=== PATIENT | female | born 1940 | race Hispanic/Latino ===

== ENCOUNTER 2017-01-22 17:18 | Emergency (ER) | payer MEDICARE ==
--- NOTE | 2017-01-22 19:40 | C.PDOC ---
History Of Present Illness 76 y/o female with a PMHx of HTN, c/o sudden onset headache for the past 4 days. Pain is dull and intermittent that is 4/10. Symptom is worse with movement. Patient takes Advil with relief of pain, but notes that the symptoms returns after. Patient reports shoulder soreness, but denies vomiting, nausea. No photophobia, visual changes, neck stiffness, head trauma, or weakness. Patient reports being currently without headache. Time Seen by Provider: 01/22/17 18:47 Chief Complaint (Nursing): Headache History Per: Patient History/Exam Limitations: no limitations Onset/Duration Of Symptoms: Days, Intermittent Episodes Current Symptoms Are (Timing): Still Present Severity: Mild Pain Scale Rating Of: 4 Quality: Dull Associated Symptoms: denies: Photophobia, Blurred Vision, Vomiting, Extremity Weakness Recent travel outside of the [place]: No Additional History Per: Patient Past Medical History Reviewed: Historical Data, Nursing Documentation, Vital Signs Vital Signs: Last Vital Signs Temp 98.0 F 01/22/17 18:57 Pulse 60 01/22/17 18:57 Resp 18 01/22/17 18:57 BP 197/77 H 01/22/17 20:02 Pulse Ox 99 01/22/17 20:48 - Medical History PMH: Asthma, HTN, Hypercholesterolemia Family History: States: Unknown Family Hx - Social History Hx Alcohol Use: No Hx Substance Use: No - Immunization History Hx Tetanus Toxoid Vaccination: Yes Hx Influenza Vaccination: Yes Hx Pneumococcal Vaccination: Yes Review Of Systems Except As Marked, All Systems Reviewed And Found Negative. Constitutional: Negative for: Other (Head trauma) Eyes: Negative for: Vision Change, Other (Photophobia) Gastrointestinal: Negative for: Nausea, Vomiting Musculoskeletal: Positive for: Shoulder Pain (Soreness). Negative for: Neck Pain Neurological: Positive for: Headache. Negative for: Weakness Physical Exam - Physical Exam Appears: Non-toxic, No Acute Distress Skin: Warm, Dry Head: Atraumatic, Normacephalic Neck: Normal ROM, Supple, No Other (Meningeal signs) Chest: Symmetrical Cardiovascular: Rhythm Regular, No Murmur Respiratory: Normal Breath Sounds, No Rales, No Rhonchi, No Wheezing Neurological/Psych: Oriented x3, Normal Speech, Normal Cognition, Other (No focal deficit) Gait: Steady ED Course And Treatment - Laboratory Results Result Diagrams: 01/22/17 19:45 01/22/17 19:45 Lab Interpretation: Normal (trop and UA neg.) ECG: Interpreted By Me, Viewed By Me ECG Rhythm: Sinus Bradycardia ECG Interpretation: Normal Rate From EC O2 Sat by Pulse Oximetry: 99 (RA) Pulse Ox Interpretation: Normal - Radiology CXR: Interpreted by Me CXR Interpretation: Yes: No Acute Disease Progress Note: bp IMPROVED no headache. Reevaluation Time: 20:46 Medical Decision Making Medical Decision Making: Plans: * EKG * Blood labs * CXR * Tylenol * Norvasc * IV fluids * UA 2044: despite PMD referred for head CT, per pt, this pt without headache, and no s/s of sinusitis. If imaging desired, pt may benefit from MRI with better sensitivity for subtle findings. Continue Norvasc 5 mg PO and f/u with PMD Disposition Doctor Will See Patient In The: Office Counseled Patient/Family Regarding: Studies Performed, Diagnosis - Disposition Referrals: Yaritza Horan MD [Medical Doctor] - Disposition: HOME/ ROUTINE Disposition Time: 20:48 Condition: GOOD Additional Instructions: continue Norvasc 5 mg daily for your elevated BP (197/77, HR 60 in ED) Tylenol 975 mg every 6 hours as needed for headache. Follow-up w Dr. Horan in 1-[address] was NOT done- consider outpatient MRI as needed. Prescriptions: amLODIPine [Norvasc] 5 mg PO DAILY #30 tab Instructions: Acute Headache (ED), Hypertension (ED) Forms: [employer] ([place]) - Clinical Impression Clinical Impression: Chronic headaches, Hypertension - Scribe Statement The provider has reviewed the documentation as recorded by the Scribe Mariela [email or web address] All medical record entries made by the Scribe were at my direction and personally dictated by me. I have reviewed the chart and agree that the record accurately reflects my personal performance of the history, physical exam, medical decision making, and the department course for this patient. I have also personally directed, reviewed, and agree with the discharge instructions and disposition.
[2017-01-22 19:55] LABS: BASO # 0.1 K/uL (0.0-0.2); BASO % 0.8 % (0.0-2.0); EOS # 0.2 K/uL (0.0-0.7); EOS % 3.1 % (0.0-4.0); HEMATOCRIT 37.1 % (34.0-47.0); LYMPH # 2.2 K/uL (1.0-4.3); LYMPH % 31.7 % (20.0-40.0); MEAN CELL VOLUME 90.6 fL (81.0-99.0); MEAN CORPUSCULAR HEMOGLOBIN 30.6 pg (27.0-31.0); MEAN CORPUSCULAR HGB CONC 33.8 g/dL (33.0-37.0); MEAN PLATELET VOLUME 7.6 fL (7.2-11.7); MONO # 0.7 K/uL (0.0-0.8); MONO % 9.7 % (0.0-10.0); NRBC % 0.1 % (0.0-2.0); RED CELL DISTRIBUTION WIDTH 13.7 % (11.5-14.5); WHITE BLOOD COUNT 6.9 K/uL (4.8-10.8)
[2017-01-22 20:03] LABS: CHLORIDE 99 mmol/L (98-107); SODIUM 138 mmol/L (132-148)
[2017-01-22 20:04] LABS: POTASSIUM 5.5 mmol/L (3.6-5.2)
[2017-01-22 20:04] LABS: RBC URINE 1 /hpf (0-3); URINE BACTERIA OCC (<OCC); URINE BILIRUBIN NEGATIVE (NEGATIVE); URINE BLOOD 1+ (NEGATIVE); URINE COLOR Colorless (YELLOW); URINE GLUCOSE (UA) NORMAL (Normal); URINE KETONE NEGATIVE (NEGATIVE); URINE LEUKOCYTE ESTERASE 1+ Leu/uL (Negative); URINE PROTEIN NEGATIVE (NEGATIVE); URINE UROBILINOGEN NORMAL mg/dL (0.2-1.0); WBC URINE 5 /hpf (0-5)
[2017-01-22 20:05] LABS: AST/SGOT 59 U/L (14-36); BILIRUBIN,TOTAL 1.5 mg/dL (0.2-1.3); CARBON DIOXIDE 22 mmol/L (22-30); GFR AFRICAN-AMERICAN > 60
[2017-01-22 20:06] LABS: ALB/GLOB RATIO 1.1 (1.0-2.1); ALKALINE PHOSPHATASE 57 U/L (38-126); ALT/SGPT 11 U/L (9-52); BLOOD UREA NITROGEN 18 mg/dL (7-17); GLUCOSE,RANDOM 89 mg/dL (65-105); TOTAL PROTEIN 8.7 g/dL (6.3-8.3)
[2017-01-22 22:18] VITALS: BP 170/72; PULSE 62; RESP 20; TEMP 98.1; O2SAT 97
--- NOTE | 2017-01-23 07:59 | RAD ---
PROCEDURE: CHEST RADIOGRAPH, 1 VIEW HISTORY: SOB COMPARISON: None available. FINDINGS: LUNGS: Clear. PLEURA: No pneumothorax or pleural fluid seen. CARDIOVASCULAR: Normal. OSSEOUS STRUCTURES: No significant abnormalities. VISUALIZED UPPER ABDOMEN: Normal. OTHER FINDINGS: None. IMPRESSION: No radiographic evidence of pneumonia or active disease.
--- NOTE | 2017-01-23 14:15 | CARD ---
APPROVED REPORT EKG Measurement Heart [id number] NM [id number] <Conclusion> Sinus bradycardia Otherwise normal ECG
== END 2017-01-22 22:00 | disposition home or self-care (01) ==
LOC: C.ER 17:18
DX: I10 Essential (primary) hypertension (principal); R51 Headache; E78.00 Pure hypercholesterolemia, unspecified